=== PATIENT | female | born 1960 | race African-American/Black ===

== ENCOUNTER 2018-09-15 18:55 | Inpatient (IN) | payer SELFPAY ==
[~2018-09-15] VITALS: Ht 167.6 cm; Wt 49.9 kg
--- NOTE | 2018-09-15 19:02 | ERD ---
ER Documentation Chief Complaint Chief Complaint Slip and fall, right hip pain HPI 57-year-old female with no significant prior medical history presents to the ED via rescue ambulance for evaluation of right hip pain. After slip and fall on a wet sidewalk patient experienced acute onset of severe, sharp, nonradiating right hip and buttock pain which is exacerbated by any attempted movement. Denies weakness, numbness or paresthesias. No syncope or loss of consciousness. No head injury, headache, neck or back pain. Denies chest pain, palpitations, shortness of breath or abdominal pain. Ongoing severe pain despite fentanyl 50 mcg IV administered by EMS. ROS All systems reviewed and are negative except as per history of present illness. Allergies Allergies: Coded Allergies: Penicillins (Verified Allergy, Unknown, 09/15/18) UNK REACTION PMhx/Soc Reviewed in chart. As per HPI. History of Surgery: Yes (Hysterectomy and appendectomy) Anesthesia Reaction: No Hx Neurological Disorder: No Hx Respiratory Disorders: No Hx Cardiac Disorders: No Hx Psychiatric Problems: No Hx Miscellaneous Medical Probl: No Hx Alcohol Use: No Hx Substance Use: No Hx Tobacco Use: No FmHx No family history relevant to presenting complaint Physical Exam Vitals Vital Signs Date Temp Pulse Resp B/P (MAP) Pulse Ox O2 O2 Flow FiO2 Time Delivery Rate 09/15/18 100 20 126/78 100 Room Air 20:27 (94) 09/15/18 98.7 90 20 105/79 100 Room Air 19:29 (88) 09/15/18 98.7 79 20 135/88 100 19:00 (104) Physical Exam Const: Severe distress due to pain. Head: Atraumatic Eyes: Normal Conjunctiva ENT: Normal External Ears, Nose and Mouth. Neck: Full range of motion. Nontender. No meningismus. Resp: Breath sounds are equal and clear to auscultation bilaterally Cardio: Regular rate and rhythm, no murmurs Abd: Soft, non tender, non distended. Normal bowel sounds Skin: No petechiae or rashes Back: No midline or flank tenderness Ext: Pelvis: Stable. Right lower extremity: Severe right hip tenderness. Limited range of motion. Exam limited due to pain. Distal neurovascular grossly intact. No knee or ankle swelling or tenderness. Neur: Awake and alert. No focal deficit. Psych: Anxious but not depressed. Result Diagram: 09/16/18 0429 09/16/18 0429 Results 24 hrs Laboratory Tests Test 09/15/18 19:35 White Blood Count 3.6 10^3/ul Red Blood Count 3.14 10^6/ul Hemoglobin 10.7 g/dl Hematocrit 32.9 % Mean Corpuscular Volume 104.8 fl Mean Corpuscular Hemoglobin 34.1 pg Mean Corpuscular Hemoglobin Concent 32.5 g/dl Red Cell Distribution Width 15.0 % Platelet Count 158 10^3/UL Mean Platelet Volume 9.5 fl Immature Granulocytes % 0.600 % Neutrophils % 48.2 % Lymphocytes % 38.1 % Monocytes % 10.9 % Eosinophils % 1.4 % Basophils % 0.8 % Nucleated Red Blood Cells % 0.0 /100WBC Immature Granulocytes # 0.020 10^3/ul Neutrophils # 1.7 10^3/ul Lymphocytes # 1.4 10^3/ul Monocytes # 0.4 10^3/ul Eosinophils # 0.1 10^3/ul Basophils # 0.0 10^3/ul Nucleated Red Blood Cells # 0.0 10^3/ul Prothrombin Time 12.9 Sec Prothrombin Time Ratio 1.0 INR International Normalized Ratio 0.96 Activated Partial Thromboplast Time 25.7 Sec Sodium Level 137 mmol/L Potassium Level 4.0 mmol/L Chloride Level 103 mmol/L Carbon Dioxide Level 17 mmol/L Anion Gap 17 Blood Urea Nitrogen 6 mg/dl Creatinine 0.41 mg/dl Est Glomerular Filtrat Rate mL/min > 60 mL/min Glucose Level 89 mg/dl Calcium Level 9.3 mg/dl Current Medications Medications Dose Sig/Jacques Start Time Status Last (Trade) Ordered Route PRN Stop Time Admin Dose Reason Admin Fentanyl 50 mcg ONCE ONCE 09/15/18 DC 09/15/18 (Sublimaze) IV 20:00 19:50 09/15/18 20:01 1 mg ONCE STAT 09/15/18 DC 09/15/18 Hydromorphone IV 20:28 20:37 HCl 09/15/18 20:29 (Dilaudid) Procedures/MDM DOCUMENTS REVIEWED: ED nurse, EMS report IMAGING: PROCEDURE: XR Right Hip CLINICAL INDICATION: Fall, pain TECHNIQUE: AP and frog-leg views were submitted. COMPARISON: None FINDINGS: Osseous structures: There is a comminuted intertrochanteric fracture of the proximal right femur. The lesser trochanter fragment appears to be displaced slightly superiorly and medially. There is slight deformity to the AC right superior pubic ramus that may be a sequelae of old trauma. That remaining visualized osseous elements appear unremarkable. Joint spaces: The hip joint is well maintained there is no distension of the joint capsule. Soft tissues: appear unremarkable. IMPRESSION: 1. Comminuted intertrochanteric fracture involving the proximal right femur. 2. Deformity to the right superior pubic ramus which may represent an old healed fracture. Physician Libertad Date Time Electronically viewed and signed by Physician Libertad on 09/15/2018 20:19 RH/ PROCEDURE: XR Pelvis CLINICAL INDICATION: Trauma, fall TECHNIQUE: An AP radiograph was submitted. COMPARISON: None FINDINGS: The patient was unable to remove close and metallic artifact projects through the image. Osseous structures: There is a comminuted intertrochanteric fracture involving the proximal right femur with the lesser trochanteric fragment displaced slightly superiorly. There is deformity to the left superior pubic ramus that may represent a sequelae of old trauma. The osseous elements otherwise appear intact. Joint spaces: The hip joints appear unremarkable. There is no distension of either joint capsule. the sacroiliac joints appear unremarkable without significant erosions or sclerosis. Soft tissues: appear unremarkable. IMPRESSION: 1. Acute somewhat comminuted intertrochanteric fracture involving the proximal right femur with the lesser trochanter fragment mildly displaced superiorly. 2. Suggestion of an old healed fracture involving the right superior pubic r amus. Physician Libertad Date Time Electronically viewed and signed by Physician Libertad on 09/15/2018 20:17 RH/ MEDICAL DECISION MAKIN-year-old female with no significant prior medical history presents to the ED via rescue ambulance for evaluation of right hip pain after slip and fall on wet sidewalk. CBC reveals mild leukopenia and anemia but no thrombocytopenia. No prior labs available for comparison. Chemistry is unremarkable for electrolyte abnormalities or renal insufficiency. X-ray of the right hip reveals a patient sustained a right comminuted intertrochanteric femur fracture. X-ray of the pelvis reveals a deformity of the superior pubic ramus likely related to previous injury although an acute fracture is not ruled out. No syncope, head injury, headache, loss of consciousness or indication for neuroimaging or cervical spine imaging. Patient with ongoing, severe pain despite multiple doses of intravenous fentanyl and Dilaudid. Admit to med/surg for orthopedic consultation, pain management, further evaluation and management. CALLS/CONSULTS: Time: 2112, Ortho, Dr. Loja. Will consult PATIENT CARE TRANSITIONED: Time: 2117, Dr. Aaron. Counseled patient regarding diagnosis, diagnostic results and plan for admission. Departure Diagnosis: Primary Impression: Acute right hip pain Additional Impressions: Fracture, intertrochanteric, right femur Encounter type: initial encounter Fracture type: closed Fracture alignment: displaced Qualified Codes: S72.141A - Displaced intertrochanteric fracture of right femur, initial encounter for closed fracture Fall with significant injury Encounter type: initial encounter Qualified Codes: W19.XXXA - Unspecified fall, initial encounter Anemia Anemia type: unspecified type Qualified Codes: D64.9 - Anemia, unspecified Condition: Serious MAY HWANG MD Sep 15, 2018 19:02
[2018-09-15] MEDS ORDERED: FENTAnyl 50 MCG/ML VIAL IV ONE (20:00)
[2018-09-15] MEDS ORDERED: HYDROmorphONE 2 MG/ML SYG IV STA (20:28)
[2018-09-15] MEDS ORDERED: ACETAMINOPHEN 325 MG TAB PO PRN ×2 (21:30→23:00)
[2018-09-15] MEDS ORDERED: ONDANSETRON 4 MG INJ IV PRN ×2 (21:30→23:00)
[2018-09-15 22:31] VITALS: BP 128/66; PULSE 65; RESP 16
[2018-09-15 22:42] VITALS: Ht 167.6 cm; Wt 49.9 kg
--- NOTE | 2018-09-15 22:50 | HP ---
Date/Time of Note Date/Time of Note DATE: 09/15/18 TIME: 22:50 Assessment/Plan VTE Prophylaxis SCD applied (from Nsg): Yes Pharmacological prophylaxis: NA/contraindicated Pharm contraindication: other (Patient with hip fracture so possibly awaiting for surgery) Lines/Catheters IV Catheter Type (from Nrsg): Saline Lock Assessment/Plan Hospital Course 57-year-old female with proximal right femur fracture status post a slip and fall accident PLAN Pain management Awaiting Ortho evaluation Result Diagram: 09/15/18193409/15/181934 Results 24hrs Laboratory Tests Test 09/15/18 19:35 White Blood Count 3.6 L Red Blood Count 3.14 L Hemoglobin 10.7 L Hematocrit 32.9 L Mean Corpuscular Volume 104.8 H Mean Corpuscular Hemoglobin 34.1 H Mean Corpuscular Hemoglobin Concent 32.5 Red Cell Distribution Width 15.0 H Platelet Count 158 Mean Platelet Volume 9.5 Immature Granulocytes % 0.600 H Neutrophils % 48.2 Lymphocytes % 38.1 Monocytes % 10.9 Eosinophils % 1.4 Basophils % 0.8 Nucleated Red Blood Cells % 0.0 Immature Granulocytes # 0.020 Neutrophils # 1.7 Lymphocytes # 1.4 Monocytes # 0.4 Eosinophils # 0.1 Basophils # 0.0 Nucleated Red Blood Cells # 0.0 Prothrombin Time 12.9 Prothrombin Time Ratio 1.0 INR International Normalized Ratio 0.96 Activated Partial Thromboplast Time 25.7 Sodium Level 137 Potassium Level 4.0 Chloride Level 103 Carbon Dioxide Level 17 L Anion Gap 17 H Blood Urea Nitrogen 6 L Creatinine 0.41 L Est Glomerular Filtrat Rate mL/min > 60 Glucose Level 89 Calcium Level 9.3 HPI/ROS Admit Date/Time Admit Date/Time Sep 15, 2018 at 21:18 Hx of Present Illness This is a 57-year-old female with no significant past medical history who presents the ER complaining of right hip pain status post slip and fall accident. X-ray shows comminuted intertrochanteric fracture involving the proximal right femur and deformity to the right superior pubic ramus which may represent an old healed fracture. Denied chest pain, palpitations, lightheadedness prior to fall. PMH/Family/Social Past Medical History Medical History: other (See HPI) Medications Current Medications Ondansetron HCl (Zofran Inj) 4 mg BRIDGE ORDER PRN IV NAUSEA AND/OR VOMITING Last administered on 09/15/18at 22:00; Admin Dose 4 MG; Start 09/15/18 at 21:30; Stop 09/16/18 at 21:29 Acetaminophen (Tylenol Tab) 650 mg ER BRIDGE PRN PO MILD PAIN(1-3)OR ELEVATED TEMP Last administered on 09/15/18at 22:00; Admin Dose 650 MG; Start 09/15/18 at 21:30; Stop 09/16/18 at 21:29 IV Flush (NS 3 ml) 3 ml PER PROTOCOL IV ; Start 09/15/18 at 23:00 Ondansetron HCl (Zofran Inj) 4 mg Q6H PRN IV NAUSEA AND/OR VOMITING; Start 09/15/18 at 23:00 Acetaminophen (Tylenol Tab) 650 mg Q6H PRN PO PAIN LEVEL 1-3 OR FEVER; Start 09/15/18 at 23:00 Acetaminophen/ Hydrocodone Bitart ([place] (5/325)) 1 tab Q6H PRN PO MODERATE PAIN LEVEL 4-6; Start 09/15/18 at 23:00 Acetaminophen/ Hydrocodone Bitart ([place] (5/325)) 2 tab Q6H PRN PO SEVERE PAIN LEVEL 7-10; Start 09/15/18 at 23:00 Coded Allergies: Penicillins (Verified Allergy, Unknown, 09/15/18) UNK REACTION Past Surgical History Past Surgical Hx: other (Hysterectomy) Family History Significant Family History: no pertinent family hx Social History Alcohol Use: none Smoking Status: Current every day smoker Drug Use: none Exam/Review of Systems Vital Signs Vitals Vital Signs Date Temp Pulse Resp B/P (MAP) Pulse Ox O2 O2 Flow FiO2 Time Delivery Rate 09/15/18 98.6 65 16 128/66 98 Room Air 22:31 (86) Exam Constitutional: alert, oriented, well developed Eyes: EOMI, PERRL Respiratory: clear to auscultation, normal air movement Cardiovascular: regular rate and rhythm, nl pulses Gastrointestinal: soft, non-tender Extremities: other (Right hip tenderness) MARY VELÁZQUEZ MD Sep 15, 2018 22:50
[2018-09-15] MEDS ORDERED: HYDROCODONE/APAP (5/325) TAB PO PRN (23:00)
[2018-09-15] MEDS ORDERED: NACL 0.9% 3 ML SYG IV SCH (23:00)
[2018-09-15] MEDS: HYDROCODONE/APAP (5/325) TAB PO PRN (23:02)
[2018-09-16 01:37] VITALS: BP 148/73; PULSE 80; RESP 18
[2018-09-16] MEDS ORDERED: HYDROmorphONE 1 MG/ML SYG IV ONE ×2 (05:00)
[2018-09-16] MEDS: HYDROCODONE/APAP (5/325) TAB PO PRN ×3 (06:44→19:37)
[2018-09-16 07:46] VITALS: BP 135/85; PULSE 85; RESP 18
[2018-09-16] MEDS: morphine 4 MG/ML VIAL IV PRN ×5 (08:07→20:59)
[2018-09-16 14:53] VITALS: BP 154/72; PULSE 91; RESP 18
--- NOTE | 2018-09-16 15:09 | CONS ---
DATE OF ADMISSION: 09/15/2018 DATE OF CONSULTATION: 09/16/2018 TYPE OF CONSULTATION: Orthopedic surgical. HISTORY OF PRESENT ILLNESS: The patient is a 57-year-old female who was admitted on 09/15/2018 when she was brought in by rescue ambulance because of the painful limit of motion involving her right hip . She obviously had a slip and fall while she was coming out of her office because of the wet ground and fell, landing on her right buttock. Following the fall, she was not able to stand up or walk be cause of the severe pain. PHYSICAL EXAMINATION: GENERAL: My examination revealed a 57-year-old female who was not in any acute distress. EXTREMITIES: There was tenderness and swelling around the right hip and there was a slight shortenin g of the right lower extremity with slight external rotation. There was no obvious neurovascular com promise involving the right lower extremity and the range of motion of the right hip was not tested b ecause of the obvious pain. DIAGNOSTIC STUDIES: X-rays of the right hip revealed presence of intertrochanteric fracture involvin g the right hip. DIAGNOSTIC IMPRESSION: Intertrochanteric fracture of the right hip. TREATMENT PLAN: To surgery for open reduction and internal fixation in earliest convenience. Dictated By: RUSSELL RUVALCABA/NTS Conf#: [id number] DID#: [id number] CC: MARY VELÁZQUEZ MD;*EndCC*
[2018-09-16 19:59] VITALS: BP 140/77; PULSE 86; RESP 18
[2018-09-17] VITALS (19 sets, daily range): BP systolic 116–157; BP diastolic 63–81; PULSE 80–96; RESP 10–25
[2018-09-17] MEDS: morphine 4 MG/ML VIAL IV PRN ×4 (01:07→13:18)
--- NOTE | 2018-09-17 16:55 | PN ---
Date/Time of Note Date/Time of Note DATE: 09/17/18 TIME: 16:53 Assessment/Plan VTE Prophylaxis Risk score (from Ns)>0 risk: 8 SCD applied (from Ns): Yes Pharmacological prophylaxis: LMWH Lines/Catheters IV Catheter Type (from Nrsg): Saline Lock Urinary Cath still in place: No Assessment/Plan Assessment/Plan 1. Intertrochanteric fracture of the right hip, NPO/IVF, pain control, surgery per Dr. Loja 2. S/p mechanical fall 3. DVT prophylaxis: lovenox Result Diagram: 09/16/189 09/16/18 0429 Results 24hrs Laboratory Tests Test 09/16/18 18:39 09/17/18 07:10 White Blood Count 4.4 L Red Blood Count 3.06 L Hemoglobin 10.2 L Hematocrit 31.1 L Mean Corpuscular Volume 101.6 H Mean Corpuscular Hemoglobin 33.3 H Mean Corpuscular Hemoglobin Concent 32.8 Red Cell Distribution Width 15.6 H Platelet Count 141 Mean Platelet Volume 10.0 Immature Granulocytes % 0.500 H Neutrophils % 62.0 Lymphocytes % 26.1 Monocytes % 10.0 Eosinophils % 0.9 Basophils % 0.5 Nucleated Red Blood Cells % 0.0 Immature Granulocytes # 0.020 Neutrophils # 2.7 Lymphocytes # 1.2 Monocytes # 0.4 Eosinophils # 0.0 Basophils # 0.0 Nucleated Red Blood Cells # 0.0 Lab Scanned Report BLOOD TRANSFUSION Subjective 24 Hr Interval Summary Free Text/Dictation right hip pain Exam/Review of Systems Vital Signs Vitals Vital Signs Date Temp Pulse Resp B/P (MAP) Pulse Ox O2 O2 Flow FiO2 Time Delivery Rate 09/17/18 99.5 93 18 157/67 98 Room Air 16:10 (97) Intake and Output 09/16/18 09/16/18 09/17/18 1414:59 22:59 06:59 IntakeIntake Total 450 ml BalanceBalance 450 ml Exam Constitutional: alert, oriented, well developed Psych: no complaints, nl mood/affect Head: normocephalic, atraumatic Eyes: nl conjunctiva, EOMI, nl lids ENMT: nl external ears & nose, nl lips & teeth, nl nasal mucosa & septum Neck: supple, non-tender Respiratory: clear to auscultation, normal air movement; No congested cough, No crackles/rales, No diminished breath sounds, No intercostal retraction, No labored breathing, No respirations, No tactile fremitus, No wheezing, No other Cardiovascular: regular rate and rhythm, nl pulses; No bruits, No diastolic murmur, No edema, No gallop, No irregular rhythm, No jugular venous distention (JVD), No murmurs/extra sounds, No rub, No systolic murmur, No S3, No S4, No other Gastrointestinal: soft, nl liver, spleen, non-tender Musculoskeletal: other (right hip pain) Extremities: normal pulses Neurological: SALES ENABLEMENT LEAD II-XII intact, nl mental status, nl speech, nl strength Skin: nl turgor Lymph: nl lymph nodes Medications Medications Current Medications IV Flush (NS 3 ml) 3 ml PER PROTOCOL IV ; Start 09/15/18 at 23:00 Ondansetron HCl (Zofran Inj) 4 mg Q6H PRN IV NAUSEA AND/OR VOMITING; Start 09/15/18 at 23:00 Acetaminophen (Tylenol Tab) 650 mg Q6H PRN PO PAIN LEVEL 1-3 OR FEVER; Start 09/15/18 at 23:00 Acetaminophen/ Hydrocodone Bitart ([place] (5/325)) 1 tab Q6H PRN PO MODERATE PAIN LEVEL 4-6; Start 09/15/18 at 23:00 Acetaminophen/ Hydrocodone Bitart ([place] (5/325)) 2 tab Q6H PRN PO SEVERE PAIN LEVEL 7-10 Last administered on 09/16/18at 19:37; Admin Dose 2 TAB; Start 09/15/18 at 23:00 Morphine Sulfate (morphine) 3 mg Q4H PRN IV SEVERE PAIN LEVEL 7-10 Last administered on 09/17/18at 13:18; Admin Dose 3 MG; Start 09/16/18 at 07:30 KARINA ROBBINS MD Sep 17, 2018 16:55
--- NOTE | 2018-09-17 17:26 | PREAC ---
Date/Time of Note Date/Time of Note DATE: 09/17/18 TIME: 17:24 Anesthesia Eval and Record Evaluation Time Pre-Procedure Interview DATE: 09/17/18 TIME: 17:24 Age 58 Sex female NPO: 8 hrs Preoperative diagnosis proximal right femur fracture status post a slip and fall accident Planned procedure right ORIF hip Past Medical History Past Medical History: None Surgery & Anesthesia Issues No known issue Meds Anticoagulation: No Beta Bakari within 24 hr: No Reason Beta Bakari not given: Pt. not on B-Bakari Current Medications IV Flush (NS 3 ml) 3 ml PER PROTOCOL IV ; Start 09/15/18 at 23:00 Ondansetron HCl (Zofran Inj) 4 mg Q6H PRN IV NAUSEA AND/OR VOMITING; Start 09/15/18 at 23:00 Acetaminophen (Tylenol Tab) 650 mg Q6H PRN PO PAIN LEVEL 1-3 OR FEVER; Start 09/15/18 at 23:00 Acetaminophen/ Hydrocodone Bitart ([place] (5/325)) 1 tab Q6H PRN PO MODERATE PAIN LEVEL 4-6; Start 09/15/18 at 23:00 Acetaminophen/ Hydrocodone Bitart ([place] (5/325)) 2 tab Q6H PRN PO SEVERE PAIN LEVEL 7-10 Last administered on 09/16/18at 19:37; Admin Dose 2 TAB; Start at 23:00 Morphine Sulfate (morphine) 3 mg Q4H PRN IV SEVERE PAIN LEVEL 7-10 Last administered on 09/17/18at 13:18; Admin Dose 3 MG; Start 09/16/18 at 07:30 Enoxaparin Sodium (Lovenox) 40 mg DAILY SC ; Start 09/18/18 at 09:00 Meds reviewed: Yes Allergies Coded Allergies: Penicillins (Verified Allergy, Unknown, 09/15/18) UNK REACTION Allergies Reviewed: Yes Labs/Studies Labs Reviewed: Reviewed by anesthesiologist Result Diagram: 09/16/18 1839 09/16/18 0429 Laboratory Tests 09/16/18 18:39 test: N/A Studies: CXR ( No evidence of acute cardiopulmonary disease) Pre-procedure Exam Last vitals Vital Signs Date Temp Pulse Resp B/P (MAP) Pulse Ox O2 O2 Flow FiO2 Time Delivery Rate 09/17/18 99.5 93 18 157/67 98 Room Air 16:10 (97) Airway: Adequate mouth opening Mallampati: Mallampati II Teeth: Normal Lung: Normal Heart: Normal ASA Physical Status ASA physical status: 1 Emergency: None Planned Anesthetic General/MAC: ETT Pre-operative Attestations Prior to commencing anesthesia and surgery, the patient was re-evaluated, there was verification of: *The patient's identity *The results of appropriate recent lab work and preoperative vital signs *The above evaluation not changing prior to induction *Anesthetic plan, risk benefits, alternative and complications discussed with patient/family; questions answered; patient/family understands, accepts and wishes to proceed. RAYMUNDO SMITH Sep 17, 2018 17:26
[2018-09-17] MEDS ORDERED: morphine SULFATE/PF (2 MG/2 ML) SYG IV PRN (18:00)
[2018-09-17] MEDS ORDERED: morphine 2 MG INJ IV PRN (18:00)
[2018-09-17] MEDS ORDERED: MIDAZOLAM 1 MG/ML 2 ML INJ ONE (18:29)
[2018-09-17] MEDS ORDERED: ONDANSETRON 4 MG INJ IV PRN (18:30)
[2018-09-17] MEDS ORDERED: PROCHLORPERAZINE 10 MG INJ IV PRN (18:30)
[2018-09-17] MEDS ORDERED: FENTAnyl 50 MCG/ML VIAL IV PRN (18:30)
[2018-09-17] MEDS ORDERED: LIDOCAINE 2% (SDV) 5 ML INJ ONE (18:30)
[2018-09-17] MEDS ORDERED: HYDROmorphONE 1 MG/5 ML IV SYRINGE IV PRN ×2 (18:30)
[2018-09-17] MEDS ORDERED: MEPERIDINE 25 MG INJ IV PRN (18:30)
[2018-09-17] MEDS ORDERED: PROPOFOL 20 ML ONE (18:30)
[2018-09-17] MEDS ORDERED: DIPHENHYDRAMINE 50 MG INJ IV PRN ×2 (18:30→20:30)
[2018-09-17] MEDS ORDERED: FENTAnyl 50 MCG/ML VIAL ONE (18:30)
[2018-09-17] MEDS ORDERED: morphine SULFATE/PF (10 MG/10 ML) INJ ONE (18:31)
[2018-09-17] MEDS ORDERED: PHENYLephrine (100 MCG/ML) 5ML SYG ONE ×2 (19:12→19:31)
[2018-09-17] MEDS ORDERED: CLINDAMYCIN 900 MG/D5W (PMX) 50 ML IVPB ONE (19:14)
[2018-09-17] MEDS ORDERED: ONDANSETRON 4 MG INJ ONE (19:16)
[2018-09-17] MEDS ORDERED: DEXAMETHASONE 4 MG/ML 5 ML INJ ONE (19:16)
[2018-09-17] MEDS ORDERED: FAMOTIDINE 20 MG INJ ONE (19:17)
[2018-09-17] MEDS ORDERED: EPHEDrine SULFATE 50 MG/5 ML SYG ONE (20:04)
--- NOTE | 2018-09-17 20:26 | PAC ---
Date/Time of Note Date/Time of Note DATE: 09/17/18 TIME: 20:24 Post-Anesthesia Notes Post-Anesthesia Note Last documented vital signs Vital Signs Date Temp Pulse Resp B/P (MAP) Pulse Ox O2 O2 Flow FiO2 Time Delivery Rate 09/17/18 99.5 93 18 157/67 98 Room Air 16:10 (97) Activity: WNL Respiratory function: WNL Cardiovascular function: WNL Mental status: Baseline Pain reasonably controlled: Yes Hydration appropriate: Yes Nausea/Vomiting absent: Yes Comments BP: 115/68 HR: 98.1 RR: 15 T: 98.1 SaO2: 100% UMBERTO MONROE MD Sep 17, 2018 20:26
--- NOTE | 2018-09-17 20:29 | SIPON ---
Date/Time of Note Date/Time of Note DATE: 09/17/18 TIME: 20:25 Operative Report Preoperative Diagnosis intertrochanteric fracture of Rt. hip Postoperative Diagnosis same Operation/Procedure Performed O.R.I.F. of intertrochanteric fracture of Rt. hip Surgeon see signature line assistant professor sculpture none Anesthesia: general Estimated blood loss: 10 - 50 ml's Transfusion Required none Specimen none Grafts/Implants gamma nail,short Complications none HERB HERRERA MD Sep 17, 2018 20:29
[2018-09-17] MEDS ORDERED: oxyCODONE 5 MG TAB PO PRN (20:30)
[2018-09-17] MEDS ORDERED: NALOXONE (0.4 MG/ML) INJ IV PRN (20:30)
[2018-09-17] MEDS ORDERED: NACL 0.9% 3 ML SYG IV SCH (20:30)
[2018-09-17] MEDS ORDERED: morphine 4 MG/ML VIAL IV PRN (20:30)
[2018-09-17] MEDS ORDERED: HYDROmorphONE 0.5 MG/0.5 ML SYG IV PRN (20:30)
[2018-09-17] MEDS: DEXTROSE 5%-LR 1,000 ML IV SCH (22:10)
[2018-09-17] MEDS: CLINDAMYCIN 900 MG/D5W (PMX) 50 ML IVPB SCH (22:10)
[2018-09-17] MEDS: HYDROmorphONE 0.5 MG/0.5 ML SYG IV PRN (22:50)
--- NOTE | 2018-09-17 22:58 | OPR ---
DATE OF OPERATION: 09/17/2018 PREOPERATIVE DIAGNOSIS: Intertrochanteric fracture of the right hip. POSTOPERATIVE DIAGNOSIS: Intertrochanteric fracture of the right hip. ANESTHESIA: General anesthesia. SURGEON: Russell Herrera MD OPERATION PERFORMED: Open reduction and internal fixation of the intertrochanteric fracture of the r ight hip. PROCEDURE AND FINDINGS: Under anesthesia, the patient was placed in supine position upon the fractur e table. Utilizing fracture table and under fluoroscopic monitoring, preliminary manipulative reduct ion of the right hip was carried out until an acceptable alignment could be achieved. Usual prep and drape was done exposing the right hip and right lower extremity. The intertrochanteric area of the right hip was approached through the small lateral longitudinal inc ision. After opening fascia sally, tip of the greater trochanter was identified and through this tip, guide pin was inserted. After confirming satisfactory position of the guide pin, opening was enlarg ed with the cannulated drill and the selected fixation device, namely 180 mm long, 10 mm wide intrame dullary paul with a 125-degree angle was inserted. After proper adjustment, the guide pin for the lag screw was properly positioned and the measurement revealed that the length of the lag screw, 75 mm. After reaming along the guide pin, the selected lag screw was inserted and then after obtaining some compression at the fracture site, lag screw was properly locked. Again, after confirming satisfacto ry alignment of the fracture and proper position of the fixation device, the internal fixation was st abilized by inserting 1 distal locking screw in a static position. After confirming satisfactory ali gnment of the fracture and proper position of the fixation device and after irrigation and hemostasis , closure of the incision was carried out using 0 Vicryl for muscle and fascia and 2-0 Vicryl for sub cutaneous tissues. Final skin closure was carried out with skin vianca. Sterile pressure dressings were applied. The patient tolerated the entire procedure very well and was sent to the recovery room in good condit ion. Dictated By: RUSSELL HERRERA MD IK/NTS Conf#: [id number] DID#: [id number] CC: MARY VELÁZQUEZ MD;*EndCC*
[2018-09-18 00:23] VITALS: BP 122/76; PULSE 107; RESP 18
[2018-09-18] MEDS: HYDROmorphONE 0.5 MG/0.5 ML SYG IV PRN ×5 (01:07→14:23)
[2018-09-18 04:30] VITALS: BP 118/59; PULSE 99; RESP 18
[2018-09-18] MEDS: CLINDAMYCIN 900 MG/D5W (PMX) 50 ML IVPB SCH ×2 (05:35→14:19)
[2018-09-18 08:23] VITALS: BP 113/59; PULSE 93; RESP 18
[2018-09-18] MEDS: DEXTROSE 5%-LR 1,000 ML IV SCH ×3 (08:59→21:29)
[2018-09-18] MEDS ORDERED: ENOXAPARIN 40 MG/0.4 ML SYG SC SCH ×2 (09:00)
--- NOTE | 2018-09-18 14:36 | PN ---
Date/Time of Note Date/Time of Note DATE: 09/18/18 TIME: 14:34 Assessment/Plan VTE Prophylaxis Risk score (from Nsg)>0 risk: 3 SCD applied (from Ns): Yes Pharmacological prophylaxis: LMWH Lines/Catheters IV Catheter Type (from Nrsg): Peripheral IV Urinary Cath still in place: Yes Reason Cath still needed: other (indicate) Assessment/Plan Assessment/Plan 1. Intertrochanteric fracture of the right hip, NPO/IVF, pain control, surgery per Dr. Loja 2. S/p mechanical fall 3. Acute on chronic anemia, acute loss, iv iron, hold lovenox today 4. DVT prophylaxis: lovenox Result Diagram: 09/18/18 0441 09/18/18 0441 Results 24hrs Laboratory Tests Test 09/18/18 04:41 09/18/18 11:00 White Blood Count 5.4 # Red Blood Count 2.54 L Hemoglobin 8.5 L Hematocrit 25.7 L Mean Corpuscular Volume 101.2 H Mean Corpuscular Hemoglobin 33.5 H Mean Corpuscular Hemoglobin Concent 33.1 Red Cell Distribution Width 14.8 H Platelet Count 132 L Mean Platelet Volume 10.3 Immature Granulocytes % 0.400 Neutrophils % 88.5 H Lymphocytes % 5.7 L Monocytes % 5.2 Eosinophils % 0.0 Basophils % 0.2 Nucleated Red Blood Cells % 0.0 Immature Granulocytes # 0.020 Neutrophils # 4.8 Lymphocytes # 0.3 L Monocytes # 0.3 Eosinophils # 0.0 Basophils # 0.0 Nucleated Red Blood Cells # 0.0 Sodium Level 134 L Potassium Level 3.9 Chloride Level 100 Carbon Dioxide Level 25 Anion Gap 9 Blood Urea Nitrogen 7 Creatinine 0.42 L Est Glomerular Filtrat Rate mL/min > 60 Glucose Level 281 H Calcium Level 8.4 Urine Color YELLOW Urine Clarity CLEAR Urine pH 5.0 Urine Specific [place] 1.015 Urine Ketones NEGATIVE Urine Nitrite NEGATIVE Urine Bilirubin NEGATIVE Urine Urobilinogen 1+ H Urine Leukocyte Esterase NEGATIVE Urine Microscopic RBC 16 H Urine Microscopic WBC 5 Urine Hemoglobin 1+ H Urine Glucose 1+ H Urine Total Protein 1+ H Subjective 24 Hr Interval Summary Free Text/Dictation oozing from surgical site Exam/Review of Systems Vital Signs Vitals Vital Signs Date Temp Pulse Resp B/P (MAP) Pulse Ox O2 O2 Flow FiO2 Time Delivery Rate 09/18/18 98.2 93 18 113/59 100 08:23 (77) 09/18/18 Nasal 3.0 08:00 Cannula Intake and Output 09/17/18 09/17/18 09/18/18 1515:00 23:00 07:00 IntakeIntake Total 1700 ml 1080 ml OutputOutput Total 30 ml 1200 ml BalanceBalance 1670 ml -120 ml Exam Constitutional: alert, oriented, well developed Psych: no complaints, nl mood/affect Head: normocephalic, atraumatic Eyes: nl conjunctiva, EOMI, nl lids, nl sclera, PERRL ENMT: nl external ears & nose, nl lips & teeth, nl nasal mucosa & septum Neck: supple, non-tender Respiratory: clear to auscultation, normal air movement; No congested cough, No crackles/rales, No diminished breath sounds, No intercostal retraction, No labored breathing, No respirations, No tactile fremitus, No wheezing, No other Cardiovascular: regular rate and rhythm, nl pulses; No bruits, No diastolic murmur, No edema, No gallop, No irregular rhythm, No jugular venous distention (JVD), No murmurs/extra sounds, No rub, No systolic murmur, No S3, No S4, No other Gastrointestinal: soft, nl liver, spleen Extremities: other (surgical site bleeding stopped) 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, nl mental status, nl speech, nl strength Medications Medications Current Medications Ondansetron HCl (Zofran Inj) 4 mg Q6H PRN IV NAUSEA AND/OR VOMITING; Start 09/15/18 at 23:00 Acetaminophen (Tylenol Tab) 650 mg Q6H PRN PO PAIN LEVEL 1-3 OR FEVER; Start 09/15/18 at 23:00 Acetaminophen/ Hydrocodone Bitart ([place] (5/325)) 1 tab Q6H PRN PO MODERATE PAIN LEVEL 4-6; Start 09/15/18 at 23:00 Acetaminophen/ Hydrocodone Bitart ([place] (5/325)) 2 tab Q6H PRN PO SEVERE PAIN LEVEL 7-10 Last administered on 09/16/18at 19:37; Admin Dose 2 TAB; Start 09/15/18 at 23:00 Hydromorphone HCl (Dilaudid) 0.2 mg Q2H PRN IV PAIN LEVEL 1-5; Start 09/17/18 at 20:30; Stop 09/18/18 at 18:52 Hydromorphone HCl (Dilaudid) 0.4 mg Q2H PRN IV PAIN LEVEL 6-10 Last administered on 09/18/18at 11:01; Admin Dose 0.4 MG; Start 09/17/18 at 20:30; Stop 09/18/18 at 18:52 Diphenhydramine HCl (Benadryl) 25 mg Q4H PRN IV PRURITUS; Start 09/17/18 at 20:30; Stop 09/18/18 at 18:52 Naloxone HCl (Narcan) 0.2 mg Q2M PRN IV DECREASED REPIRATORY RATE; Start 09/17/18 at 20:30; Stop 09/18/18 at 18:52 Miscellaneous Information (* Miscellaneous Pharmacy Order) DURAMORPH: 0.2 MG SPI... GIVEN NEURAXIAL XX ; Start 09/17/18 at 20:30; Stop 09/18/18 at 18:52 Dextrose/Lactated Ringer's 1,000 ml @ 80 mls/hr [id number] IV Last administered on 09/18/18at 12:40; Admin Dose 80 MLS/HR; Start 09/17/18 at 20:29 Oxycodone HCl (Roxicodone) 10 mg Q4H PRN PO PAIN; Start 09/17/18 at 20:30 Oxycodone HCl (Roxicodone) 5 mg Q4H PRN PO PAIN; Start 09/17/18 at 20:30 Hydromorphone HCl (Dilaudid) 1 mg Q3H PRN IV BREAKTHROUGH PAIN; Start 09/17/18 at 20:30 Clindamycin HCl/ Dextrose 50 ml @ 50 mls/hr Q8H IVPB Last administered on 09/18/18at 14:19; Admin Dose 50 MLS/HR; Start 09/17/18 at 22:00; Stop 09/18/18 at 14:59 IV Flush (NS 3 ml) 3 ml per protocol IV ; Start 09/17/18 at 20:30 Enoxaparin Sodium (Lovenox) 40 mg DAILY SC Last administered on 09/18/18at 08:22; Admin Dose 40 MG; Start 09/18/18 at 09:00 Morphine Sulfate (morphine) 3 mg Q3H PRN IV SEVERE PAIN LEVEL 7-10; Start 09/17/18 at 20:30 KARINA ROBBINS MD Sep 18, 2018 14:36
[2018-09-18 15:09] VITALS: BP 125/67; PULSE 89; RESP 18
[2018-09-18] MEDS: oxyCODONE 5 MG TAB PO PRN ×2 (17:44→21:57)
[2018-09-18 19:35] VITALS: BP 106/66; PULSE 97; RESP 18
[2018-09-19 01:09] VITALS: BP 103/68; PULSE 85; RESP 18
[2018-09-19] MEDS: oxyCODONE 5 MG TAB PO PRN ×5 (02:04→22:49)
[2018-09-19 07:38] VITALS: BP 128/58; PULSE 79; RESP 19
[2018-09-19] MEDS: HYDROCODONE/APAP (5/325) TAB PO PRN ×2 (09:41→17:04)
[2018-09-19] MEDS: DEXTROSE 5%-LR 1,000 ML IV SCH ×2 (09:59→22:29)
[2018-09-19] MEDS: HYDROmorphONE 1 MG/ML SYG IV PRN ×3 (11:54→20:36)
[2018-09-19] MEDS: SOD FERRIC GLUC COMPLX 125 MG in SOD CHLORIDE 0.9% 100 ML IVPB SCH (11:57)
[2018-09-19 14:00] VITALS: BP 122/62; PULSE 78; RESP 18
--- NOTE | 2018-09-19 14:55 | PN ---
Date/Time of Note Date/Time of Note DATE: 09/19/18 TIME: 14:51 Assessment/Plan VTE Prophylaxis Risk score (from Ns)>0 risk: 2 SCD applied (from Ns): Yes Pharmacological prophylaxis: LMWH Lines/Catheters IV Catheter Type (from Nrs): Peripheral IV Urinary Cath still in place: No Assessment/Plan Assessment/Plan 1. Intertrochanteric fracture of the right hip, s/p ORIF on 09/17/2018, not candidate for SNF since no insurance, continue PT 2. S/p mechanical fall 3. Acute on chronic anemia, acute loss, iv iron 4. DVT prophylaxis: lovenox Result Diagram: 09/19/18 1009 09/19/18 1009 Results 24hrs Laboratory Tests Test 09/19/18 10:09 White Blood Count 4.9 Red Blood Count 2.66 L Hemoglobin 8.9 L Hematocrit 27.3 L Mean Corpuscular Volume 102.6 H Mean Corpuscular Hemoglobin 33.5 H Mean Corpuscular Hemoglobin Concent 32.6 Red Cell Distribution Width 15.5 H Platelet Count 147 Mean Platelet Volume 10.8 H Immature Granulocytes % 0.800 H Neutrophils % 60.3 Lymphocytes % 28.3 Monocytes % 9.0 Eosinophils % 1.2 Basophils % 0.4 Nucleated Red Blood Cells % 0.0 Immature Granulocytes # 0.040 H Neutrophils # 3.0 Lymphocytes # 1.4 Monocytes # 0.4 Eosinophils # 0.1 Basophils # 0.0 Nucleated Red Blood Cells # 0.0 Sodium Level 138 Potassium Level 3.8 Chloride Level 104 Carbon Dioxide Level 27 Anion Gap 7 Blood Urea Nitrogen 6 L Creatinine 0.39 L Est Glomerular Filtrat Rate mL/min > 60 Glucose Level 104 # Calcium Level 9.3 Subjective 24 Hr Interval Summary Free Text/Dictation right hip pain Exam/Review of Systems Vital Signs Vitals Vital Signs Date Temp Pulse Resp B/P (MAP) Pulse Ox O2 O2 Flow FiO2 Time Delivery Rate 09/19/18 Nasal 2.0 08:30 Cannula 09/19/18 98.7 79 19 128/58 100 07:38 (81) Intake and Output 09/18/18 09/18/18 09/19/18 1515:00 23:00 07:00 IntakeIntake Total 1240 ml 920 ml 350 ml OutputOutput Total 1100 ml 1000 ml BalanceBalance 1240 ml -180 ml -650 ml Exam Constitutional: alert, oriented, well developed Psych: no complaints, nl mood/affect Head: normocephalic, atraumatic Eyes: nl conjunctiva, EOMI, nl lids, nl sclera, PERRL ENMT: nl external ears & nose, nl lips & teeth, nl nasal mucosa & septum, mucosa pink and moist Neck: supple, non-tender Respiratory: clear to auscultation, normal air movement Cardiovascular: regular rate and rhythm, nl pulses; No bruits, No diastolic murmur, No edema, No gallop, No irregular rhythm, No jugular venous distention (JVD), No murmurs/extra sounds, No rub, No systolic murmur, No S3, No S4, No other Gastrointestinal: soft, nl liver, spleen, non-tender Musculoskeletal: nl extremities to inspection Extremities: normal pulses, other 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, nl mental status, nl speech, nl strength Skin: nl turgor Medications Medications Current Medications Ondansetron HCl (Zofran Inj) 4 mg Q6H PRN IV NAUSEA AND/OR VOMITING; Start 09/15/18 at 23:00 Acetaminophen (Tylenol Tab) 650 mg Q6H PRN PO PAIN LEVEL 1-3 OR FEVER; Start 09/15/18 at 23:00 Acetaminophen/ Hydrocodone Bitart ([place] (5/325)) 1 tab Q6H PRN PO MODERATE PAIN LEVEL 4-6 Last administered on 09/18/18at 20:55; Admin Dose 1 TAB; Start 09/15/18 at 23:00 Acetaminophen/ Hydrocodone Bitart ([place] (5/325)) 2 tab Q6H PRN PO SEVERE PAIN LEVEL 7-10 Last administered on 09/19/18at 09:41; Admin Dose 2 TAB; Start 09/15/18 at 23:00 Dextrose/Lactated Ringer's 1,000 ml @ 80 mls/hr [id number] IV Last administered on 09/18/18at 12:40; Admin Dose 80 MLS/HR; Start 09/17/18 at 20:29 Oxycodone HCl (Roxicodone) 10 mg Q4H PRN PO PAIN Last administered on 09/19/18at 12:57; Admin Dose 10 MG; Start 09/17/18 at 20:30 Oxycodone HCl (Roxicodone) 5 mg Q4H PRN PO PAIN; Start 09/17/18 at 20:30 Hydromorphone HCl (Dilaudid) 1 mg Q3H PRN IV BREAKTHROUGH PAIN Last administered on 09/19/18at 11:54; Admin Dose 1 MG; Start 09/17/18 at 20:30 IV Flush (NS 3 ml) 3 ml per protocol IV ; Start 09/17/18 at 20:30 Ferric Sodium Gluconate Complex 125 mg/Sodium Chloride 100 ml @ 100 mls/hr DAILY@1300 IVPB Last administered on 09/19/18at 11:57; Admin Dose 100 MLS/HR; Start 09/19/18 at 13:00; Stop 09/21/18 at 13:59 KARINA ROBBINS MD Sep 19, 2018 14:55
[2018-09-19] MEDS: ENOXAPARIN 40 MG/0.4 ML SYG SC SCH (15:18)
[2018-09-19 19:30] VITALS: BP 132/62; PULSE 78; RESP 20
[2018-09-20] MEDS: HYDROmorphONE 1 MG/ML SYG IV PRN ×3 (00:13→06:07)
[2018-09-20] MEDS: HYDROCODONE/APAP (5/325) TAB PO PRN ×2 (00:50→07:26)
[2018-09-20 02:15] VITALS: BP 137/69; PULSE 77; RESP 20
[2018-09-20] MEDS: oxyCODONE 5 MG TAB PO PRN ×2 (03:54→09:03)
[2018-09-20 07:19] VITALS: BP 118/65; PULSE 84; RESP 15
[2018-09-20] MEDS: ENOXAPARIN 40 MG/0.4 ML SYG SC SCH (09:01)
[2018-09-20] MEDS ORDERED: POLYETHYLENE GLYCOL 17 GM PACKET PO PRN (10:00)
[2018-09-20] MEDS ORDERED: CELECOXIB 100 MG CAP PO SCH (11:00)
[2018-09-20] MEDS: OXYCODONE/ACETAMINOPHEN (10/325) TAB PO PRN ×4 (11:32→22:57)
--- NOTE | 2018-09-20 11:48 | PN ---
Date/Time of Note Date/Time of Note DATE: 09/20/18 TIME: 11:48 Objective Vitals Vital Signs Date Temp Pulse Resp B/P (MAP) Pulse Ox O2 O2 Flow FiO2 Time Delivery Rate 09/20/18 98.2 84 15 118/65 99 Room Air 07:19 (82) 09/19/18 2.0 08:30 Intake and Output 09/19/18 09/19/18 09/20/18 1515:00 23:00 07:00 IntakeIntake Total 740 ml 600 ml 400 ml OutputOutput Total 1000 ml 600 ml BalanceBalance 740 ml -400 ml -200 ml Results Result Diagram: 09/19/18 1009 09/19/18 1009 Medications Medications Current Medications Ondansetron HCl (Zofran Inj) 4 mg Q6H PRN IV NAUSEA AND/OR VOMITING; Start 09/15/18 at 23:00 Acetaminophen (Tylenol Tab) 650 mg Q6H PRN PO PAIN LEVEL 1-3 OR FEVER; Start 09/15/18 at 23:00 Hydromorphone HCl (Dilaudid) 1 mg Q3H PRN IV BREAKTHROUGH PAIN Last administered on 09/20/18at 06:07; Admin Dose 1 MG; Start 09/17/18 at 20:30 IV Flush (NS 3 ml) 3 ml per protocol IV ; Start 09/17/18 at 20:30 Ferric Sodium Gluconate Complex 125 mg/Sodium Chloride 100 ml @ 100 mls/hr DAILY@1300 IVPB Last administered on 09/19/18at 11:57; Admin Dose 100 MLS/HR; Start 09/19/18 at 13:00; Stop 09/21/18 at 13:59 Enoxaparin Sodium (Lovenox) 40 mg DAILY SC Last administered on 09/20/18at 09:01; Admin Dose 40 MG; Start 09/19/18 at 15:00 Polyethylene Glycol (Miralax) 17 gm DAILY PRN PO CONSTIPATION; Start 09/20/18 at 10:00 Gabapentin (Neurontin) 300 mg TID PO ; Start 09/20/18 at 13:00 Oxycodone/ Acetaminophen (Endocet (10/ 325)) 1 tab Q4H PRN PO MODERATE PAIN LEVEL 4-6 Last administered on 09/20/18at 11:32; Admin Dose 1 TAB; Start 09/20/18 at 11:00 VTE Prophylaxis Risk score (from Nsg)>0 risk: 4 SCD applied (from Ns): Yes Lines/Catheters IV Catheter Type: [place] in Place: No Assessment/Plan Hospital Course Subjective Patient participating with PT, however stating it is still very painful Objective Physical exam General: Patient is laying in bed and answers questions appropriately Mentation: Patient is alert and oriented 4, Head: Normocephalic atraumatic Eyes: EOMI, pupils reactive to light Neck: Supple, nontender, midline Respiratory: Clear to auscultation bilaterally Cardiovascular: regular rate, no obvious murmurs Gastrointestinal: non-tender to palpation, bowel sounds heard. Neurological: Moves all extremities spontaneously Skin: Surgical site, bandaged, CDI Assessment and plan Hip fracture -Status post ORIF -PT OT Mechanical fall -Because of above hip fracture Acute on chronic anemia -Iron as needed Pain secondary to above -Adjusting pain medications, adding gabapentin, will consider also NSAID if current regimen is not enough Disposition -Currently patient has no insurance, is unable to take care of self at home, social service consult has been done for [facility], will need to determine how to get patient home safely versus a rehab if insurance can be reinstituted quickly. GEORGIA ESPINAL Sep 20, 2018 11:48
[2018-09-20] MEDS: GABAPENTIN 300 MG CAP PO SCH ×2 (13:43→21:03)
[2018-09-20] MEDS: SOD FERRIC GLUC COMPLX 125 MG in SOD CHLORIDE 0.9% 100 ML IVPB SCH (13:45)
[2018-09-20 14:32] VITALS: BP 128/68; PULSE 81; RESP 14
[2018-09-20 19:25] VITALS: BP 143/74; PULSE 85; RESP 20
[2018-09-21 02:40] VITALS: BP 152/73; PULSE 81; RESP 20
[2018-09-21] MEDS: OXYCODONE/ACETAMINOPHEN (10/325) TAB PO PRN ×3 (03:06→11:41)
[2018-09-21 08:27] VITALS: BP 162/77; PULSE 61; RESP 18
[2018-09-21] MEDS: GABAPENTIN 300 MG CAP PO SCH (09:11)
[2018-09-21] MEDS: ENOXAPARIN 40 MG/0.4 ML SYG SC SCH (09:17)
[2018-09-21 12:00] VITALS: BP 134/75
[2018-09-21] MEDS: SOD FERRIC GLUC COMPLX 125 MG in SOD CHLORIDE 0.9% 100 ML IVPB SCH (13:57)
[2018-09-21 14:02] VITALS: BP 142/68; PULSE 86; RESP 16
--- NOTE | 2018-09-21 14:57 | PN ---
Date/Time of Note Date/Time of Note DATE: 09/21/18 TIME: 14:55 Assessment/Plan VTE Prophylaxis Risk score (from Nsg)>0 risk: 4 SCD applied (from Nsg): Yes Pharmacological prophylaxis: heparin Lines/Catheters IV Catheter Type (from Nrsg): [place] Urinary Cath still in place: No Assessment/Plan Hospital Course 58 yo female with femur fracture s/p ORIF - PT - pain control - Dc likely tomorrow Result Diagram: 09/19/18 1009 09/21/18 1049 Results 24hrs Laboratory Tests Test 09/21/18 10:49 Sodium Level 138 Potassium Level 4.0 Chloride Level 102 Carbon Dioxide Level 30 Anion Gap 6 Blood Urea Nitrogen 5 L Creatinine 0.40 L Est Glomerular Filtrat Rate mL/min > 60 Glucose Level 113 Calcium Level 9.2 Phosphorus Level 4.8 Magnesium Level 1.8 Subjective 24 Hr Interval Summary Free Text/Dictation [place] with PT Unsure if she wants to go home vs [facility] Exam/Review of Systems Vital Signs Vitals Vital Signs Date Temp Pulse Resp B/P (MAP) Pulse Ox O2 O2 Flow FiO2 Time Delivery Rate 09/21/18 98.8 86 16 142/68 99 14:02 (92) 09/21/18 Room Air 02:40 09/19/18 2.0 08:30 Intake and Output 09/20/18 09/20/18 09/21/18 1515:00 23:00 07:00 IntakeIntake Total 600 ml OutputOutput Total 250 ml BalanceBalance 600 ml -250 ml Medications Medications Current Medications Ondansetron HCl (Zofran Inj) 4 mg Q6H PRN IV NAUSEA AND/OR VOMITING; Start 09/15/18 at 23:00 Acetaminophen (Tylenol Tab) 650 mg Q6H PRN PO PAIN LEVEL 1-3 OR FEVER; Start 09/15/18 at 23:00 Hydromorphone HCl (Dilaudid) 1 mg Q3H PRN IV BREAKTHROUGH PAIN Last administered on 09/20/18at 06:07; Admin Dose 1 MG; Start 09/17/18 at 20:30 IV Flush (NS 3 ml) 3 ml per protocol IV ; Start 09/17/18 at 20:30 Enoxaparin Sodium (Lovenox) 40 mg DAILY SC Last administered on 09/21/18at 09:17; Admin Dose 40 MG; Start 09/19/18 at 15:00 Polyethylene Glycol (Miralax) 17 gm DAILY PRN PO CONSTIPATION; Start 09/20/18 at 10:00 Oxycodone/ Acetaminophen (Endocet ()) 1 tab Q4H PRN PO MODERATE PAIN LEVEL 4-6 Last administered on 09/21/18at 11:41; Admin Dose 1 TAB; Start 09/20/18 at 11:00 JOSE M DINH MD Sep 21, 2018 14:57
[2018-09-21] MEDS ORDERED: oxyCODONE 5 MG TAB PO PRN (15:00)
[2018-09-21] MEDS: HYDROCODONE/APAP (5/325) TAB PO PRN ×2 (17:39→18:19)
[2018-09-21] MEDS ORDERED: HYDROCODONE/APAP (5/325) TAB PO PRN (18:00)
[2018-09-21 20:17] VITALS: BP 156/70; PULSE 81; RESP 18
[2018-09-21] MEDS: oxyCODONE 5 MG TAB PO PRN (20:17)
[2018-09-21] MEDS: HYDROmorphONE 1 MG/ML SYG IV PRN (23:17)
[2018-09-22 01:55] VITALS: BP 152/77; PULSE 82; RESP 16
[2018-09-22] MEDS: HYDROmorphONE 1 MG/ML SYG IV PRN ×2 (02:33→09:27)
[2018-09-22] MEDS: oxyCODONE 5 MG TAB PO PRN ×2 (07:22→13:09)
[2018-09-22 07:26] VITALS: BP 157/70; PULSE 84; RESP 19
[2018-09-22] MEDS: ENOXAPARIN 40 MG/0.4 ML SYG SC SCH (09:28)
--- NOTE | 2018-09-22 13:39 | DS ---
Date/Time of Note Date/Time of Note DATE: 09/22/18 TIME: 13:38 Discharge Summary Admission/Discharge Info Admit Date/Time Sep 15, 2018 at 21:18 Discharge Date/Time Discharge Diagnosis Hip fracture Patient Condition: Stable Hospital Course 58 yo female presented with femur fracture. She was taken to OR by Dr Loja and underwent ORIF. Worked with PT following this. Janina is uninsured so home services were unable to be arranged. [facility]. Home Meds No Active Prescriptions or Reported Meds Primary Care Provider Care Physician No Primary JOSE M DINH MD Sep 22, 2018 13:39
== END 2018-09-22 16:20 | disposition home health service (06) | DRG 481 ==
LOC: E/R 18:55 → MS1 21:18 → EDBEDREQ 21:58 → MS1 09-18 16:59
PROVIDERS: ADMIT Internal Medicine; ATTEND Internal Medicine
PROC: 30233N1 Transfusion of Nonautologous Red Blood Cells into Peripheral Vein, Percutaneous Approach (ICD-10-PCS; 2018-09-16)
PROC: 0QS606Z Reposition Right Upper Femur with Intramedullary Internal Fixation Device, Open Approach (ICD-10-PCS; principal; 2018-09-17 16:30)
DX: S72.141A Displaced intertrochanteric fracture of right femur, initial encounter for closed fracture (principal); D62 Acute posthemorrhagic anemia; W01.0XXA Fall on same level from slipping, tripping and stumbling without subsequent striking against object, initial encounter; Y92.480 Sidewalk as the place of occurrence of the external cause
CPT/HCPCS: 36430; 71045; 72170; 73500; 73510; 73530; 80048; 80053; 81001; 83735; 84100; 85025; 85610; 85730; 86850; 86900; 86901; 86920; 87081; 96374; 96375; 97110; 97116; 97161; 97530; C1713; J1100; J1170; J1650; J2250; J2270; J2274; J2370; J2405; J2916; J3010; J7121; P9016